=== PATIENT | female | born 1970 | race Caucasian/White ===

== ENCOUNTER 2019-09-03 08:44 | Outpatient (CLI) | payer OTHER, SELFPAY ==
--- NOTE | 2019-09-03 08:58 | MM_ITS ---
WS: [id number] SCREENING DIGITAL MAMMOGRAM WITH CAD HISTORY: SCREENING COMPARISON: None available. Bilateral CC and MLO views submitted. Computer aided detection analyzed. Breast composition: The breasts are heterogeneously dense, which may obscure small masses. Numerous b ilateral asymmetries need further evaluation. Irregular asymmetries in the medial and lateral aspect of the RIGHT breast on the CC projection. There is an 8 mm nodule in the central RIGHT breast on the lateral projection. Asymmetries in the central LEFT breast in the upper outer quadrant. RIGHT breast: Spot compression views (CC and MLO). True ML. Ultrasound to follow if abnormality persi sts. LEFT breast: Spot compression views (CC and MLO). True ML. Ultrasound to follow if abnormality persis ts. MM/[place] [id number] IMPRESSION: BI-RADS: 0-Incomplete: Need additional imaging evaluation FOLLOW UP: Need Additional Imaging
--- NOTE | 2019-09-03 10:22 | US_ITS ---
WS: [id number] Pelvic ultrasound, 09/03/2019 Clinical Data: IRREGULAR MENSES Comparison: None. Findings: The uterus measures 4.70 cm x 5.89 cm x 13.10 cm. The endometrium is 1.02 cm. No intrauterine or abnormal intrauterine mass is seen. The cervical length is 5.34 cm. Nabothian cysts are seen. The left ovary measures 2.45 cm x 2.53 cm x 2.89 cm with no cysts or masses. The right ovary measures 2.03 cm x 2.11 cm x 2.96 cm with no cysts or masses. US/US pelvic complete* [id number] Impression: Negative pelvic ultrasound.
== END 2019-09-03 08:45 | disposition home or self-care (01) ==
LOC: RADSHAW 08:51
PROVIDERS: PCP Electrodiagnostic Medicine; Visit Provider Electrodiagnostic Medicine
DX: Z12.31 Encounter for screening mammogram for malignant neoplasm of breast (principal); N92.6 Irregular menstruation, unspecified
CPT/HCPCS: 76856; 77067

== ENCOUNTER 2019-09-10 09:39 | Outpatient (CLI) | payer OTHER, SELFPAY ==
--- NOTE | 2019-09-10 09:45 | US_ITS ---
WS: [id number] ADDITIONAL VIEWS BILATERAL MAMMOGRAM AND BILATERAL BREAST ULTRASOUND ADDITIONAL VIEWS BILATERAL MAMMOGRAM HISTORY: BILATERAL BREAST MASSES. DENSE ASYMMETRIC TISSUE IN THE UPPER OUTER QUADRANTS OF EACH BREAST . COMPARISON: 09/03/2019 Right breast: Lobulated soft tissue mass measuring 8 mm in the medial RIGHT breast near 2-3 o'clock. There is additional dense asymmetric fibroglandular tissue in the upper-outer quadrant but no discret e mass. Left breast: Dense fibroglandular tissue in the upper-outer quadrant of the LEFT breast. Very dense t issue with obscured discrete masses. Ultrasound will also be obtained. BREAST ULTRASOUND RIGHT breast: 2:00, 2 cm from the nipple is a hypoechoic slightly lobulated mass with fingerlike exte nsions. No through transmission. Mass measures 5 x 6 mm. No increased vascularity. Additional imaging of the RIGHT upper quadrant in the dense fibroglandular tissue is negative for any suspicious mass. Hyperechoic mass at 4 mm at 2:00 is probably a small lipoma. There are some small ducts. No additiona l RIGHT breast mass. LEFT breast: Ultrasound is directed to the upper outer quadrant of the LEFT breast in the dense fibro glandular tissue. There are several small cysts. These have through transmission. No solid mass is id entified. 1. Biopsy recommended of the RIGHT breast mass at 2:00. Complex cyst versus early neoplasm. Ultrasou nd-guided biopsy recommended. 2. No additional suspicious masses are identified within the areas of the dense fibroglandular tissu e. Notified Gino Velasquez DO at 09/10/2019 11:28 AM. Discussed with [facility]. US/US breast BI limited* [id number] IMPRESSION: BI-RADS: 4B-Suspicious: Intermediate FOLLOW UP: Biopsy Recommended
== END 2019-09-10 09:40 | disposition home or self-care (01) ==
LOC: RADSHAW 09:41
PROVIDERS: PCP Electrodiagnostic Medicine; Visit Provider Electrodiagnostic Medicine
DX: N63.21 Unspecified lump in the left breast, upper outer quadrant (principal); N63.11 Unspecified lump in the right breast, upper outer quadrant
CPT/HCPCS: 76642; 77066

== ENCOUNTER 2019-09-29 11:55 | Outpatient (CLI) | payer OTHER, SELFPAY ==
--- NOTE | 2019-09-29 12:00 | US_ITS ---
WS: [id number] ULTRASOUND-GUIDED RIGHT BREAST BIOPSY HISTORY: RT BREAST MASS COMPARISON: 09/10/2019 Procedure, risks and complications are explained to the patient. Medications are reviewed. Consent is obtained. The mass in the RIGHT breast at 2:00 is localized with ultrasound. Skin is cleansed with ChloraPrep a nd anesthetized with 1% buffered lidocaine. Small dermatome is made. Under sterile conditions mass is biopsied with a 14-gauge Achieve needle. Multiple core biopsies are performed. Material placed in [facility] and sent to pathology for review. Only a single biopsy is performed. After the initial biopsy this cystic mass collapsed. Breast tissue marker ([employer] ultrasound enhanced ribbon): None. Patient left the radiology suite with no complications. Patient is instructed to return to [facility] or [facility] with any concerns. 1. Uncomplicated core needle biopsy RIGHT breast cystic mass at 2:00. Mass collapsed after the initi al biopsy. US/[place] [id number] IMPRESSION: PATHOLOGY: Benign breast tissue with fibrocystic changes. Focal apocrine metapl toño. No malignancy. Imaging and pathological findings are concordant. RECOMMENDATION: Diagnostic RIGHT mammogram follow-up in 6 months.
== END 2019-09-29 11:56 | disposition home or self-care (01) ==
LOC: RAD 11:58
PROVIDERS: PCP Electrodiagnostic Medicine; Visit Provider Electrodiagnostic Medicine
DX: N63.10 Unspecified lump in the right breast, unspecified quadrant (principal)
CPT/HCPCS: 19083; 88305; J2001

== ENCOUNTER 2020-04-05 12:50 | Outpatient (CLI) | payer OTHER, SELFPAY ==
--- NOTE | 2020-04-05 13:13 | MM_ITS ---
WS: [id number] RIGHT DIGITAL DIAGNOSTIC MAMMOGRAM MAMMOGRAPHY WITH CAD CLINICAL INFORMATION: RT BREAST MASS 6 MO F/U COMPARISON September 10, 2019 and ultrasound September 10, 2019 and September 29, 2019 TECHNIQUE: Right CC, MLO, and ML views. FINDINGS: Scattered fibroglandular densities right breast. Stable 8 mm asymmetric density inferior right breast . A few punctate calcifications. No other changes. No suspicious focal mass, asymmetry, calcifications, or architectural distortion. No evidence of kira gnancy. MM/[place] [id number] IMPRESSION: BI-RADS: 2-Benign FOLLOW UP: 1 Year Follow-up Recommend return to annual screening mammography.
== END 2020-04-05 12:51 | disposition home or self-care (01) ==
LOC: RADSHAW 12:52
PROVIDERS: PCP Electrodiagnostic Medicine; Visit Provider Electrodiagnostic Medicine
DX: N63.10 Unspecified lump in the right breast, unspecified quadrant (principal)
CPT/HCPCS: 77065

== ENCOUNTER 2021-11-15 13:46 | Outpatient (CLI) | payer OTHER, SELFPAY ==
--- NOTE | 2021-11-15 13:56 | MM_ITS ---
WS: [id number] BILATERAL SCREENING 3D TOMOSYNTHESIS DIGITAL MAMMOGRAM WITH CAD HISTORY: SCREENING COMPARISON: 04/05/2020, 09/03/2019 Bilateral CC and MLO views submitted. Computer aided detection analyzed. Breast composition: The breasts are heterogeneously dense, which may obscure small masses. No suspici ous masses, microcalcifications or architectural distortion. Lobulated mass in the medial superior RI GHT breast has undergone biopsy before and benign. There are additional asymmetries throughout both b reasts which are stable. MM/[place] [id number] IMPRESSION: BI-RADS: 2-Benign FOLLOW UP: 1 Year Follow-up
== END 2021-11-15 13:47 | disposition home or self-care (01) ==
LOC: RADSHAW 13:48
PROVIDERS: PCP Electrodiagnostic Medicine; Visit Provider Electrodiagnostic Medicine
DX: Z12.31 Encounter for screening mammogram for malignant neoplasm of breast (principal)
CPT/HCPCS: 77063; 77067

== ENCOUNTER 2023-03-12 08:38 | Outpatient (CLI) | payer OTHER, SELFPAY ==
--- NOTE | 2023-03-12 09:04 | MM_ITS ---
WS: [id number] VIEWS: MLO and CC views both breasts. 3D digital tomosynthesis is also included in this exam. Comparison made with prior exam of 09/03/2019, 04/05/2020, 11/15/2021.. Findings: There was no sign of mass, architectural distortion or suspicious calcification in either breast. Sta ble appearing nodular densities in both breasts.The breasts are heterogeneously dense which may obscu re small masses. MM/[place] [id number] Impression: BI-RADS: 2-Benign finding. FOLLOW-UP: 1 Year Follow-up This mammogram was also analyzed by the Computer Aided Detection System [employer]ag [employer].
== END 2023-03-12 08:39 | disposition home or self-care (01) ==
PROVIDERS: PCP Family Medicine; Visit Provider Family Medicine
DX: Z12.31 Encounter for screening mammogram for malignant neoplasm of breast (principal)
CPT/HCPCS: 77063; 77067

== ENCOUNTER → 2023-04-02 08:13 | Outpatient (BNVA) | payer OTHER, SELFPAY | PROVIDERS: PCP Family Medicine; Visit Provider Family Medicine | DX: Z51.81 Encounter for therapeutic drug level monitoring (principal); Z13.220 Encounter for screening for lipoid disorders | CPT/HCPCS: 80053; 80061; 85025 ==

== ENCOUNTER 2024-03-11 07:05 | Day surgery (SDC) | payer OTHER, SELFPAY ==
[2024-03-11 07:28] VITALS: BP 130/90; PULSE 111; RESP 18; TEMP 36.7; O2SAT 96
[2024-03-11 07:32] VITALS: BMI 33.5
--- NOTE | 2024-03-11 07:33 | ANES.PREANE2 ---
Pre-Anesthetic Assessment Height/Weight: Height 1.63 m Weight 88.451 kg Temp Pulse Resp BP Pulse Ox O2 Del Method 98.1 F 111 H 18 130/90 96 Room Air 03/11/24 07:28 03/11/24 07:28 03/11/24 07:28 03/11/24 07:28 03/11/24 07:28 03/11/24 07:28 Preop Diagnosis: screening Operation Date: 03/11/24 09:00 Proposed Procedures p Colonoscopy 05440,G0121, Z12.11(Not Applicable) - German Esquivel MD Familial anesthetic complications: none Was Beta Ninfa taken within 24 hours: N/A Was Clonidine taken within 24 hours: N/A Last intake: Intake Last Liquid Date 03/10/24 Last Liquid Time 23:00 Last Solid Date 03/09/24 Social No alcohol and No tobacco Exam alert, oriented x 3, clear to auscultation bilaterally and regular rate & rhythm Airway Submandibular: within normal limits Cervical ROM: within normal limits Mallampati: Class II Dentition: full Pulmonary None reported CV/HEM Hypertension None reported Hepatic None reported GI None reported Metabolic Hyperlipidemia [facility] None reported Neuropsych None reported Anesthetic Plan ASA status: 2 Anesthesia: MAC Risk of > 500 ml blood loss (7ml/kg in children): No Medications/Allergies Home Medications Medication Instructions Recorded Confirmed Last Taken Type atorvastatin 40 mg tablet 40 mg PO DAILY #90 tabs 04/02/23 03/10/24 03/09/24 Rx lisinopril 10 mg tablet 10 mg PO DAILY #90 tabs 04/02/23 03/10/24 03/09/24 Rx multivitamin 1 tab PO DAILY 03/10/24 03/10/24 03/09/24 History Allergies Allergy/AdvReac Type Severity Reaction Status Date / Time No Known Allergies Allergy Verified 02/18/24 08:01 [facility] Anesthesia Surgical History Hx of section Family History Father Hypertension Hyperlipidemia Mother Hypertension Social History Smoking and tobacco/nicotine status: never used tobacco/nicotine Alcohol intake: never Substance/Drug Use: never 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
[2024-03-11] MEDS: sodium chloride 0.9% 1,000 ML 30 ML IV ×2 (07:37→08:53)
--- NOTE | 2024-03-11 07:38 | W.PM.OPSUD ---
Surgery/Procedure H&P Update DATE OF PROCEDURE: March 11, 2024 DATE H&P PERFORMED: 02/18/24 H&P UPDATE INFORMATION: I have reviewed H&P completed within last 30 days, I have examined patient prior to procedure, No changes to prior documentation and H&P is in [facility] EMR on date indicated PREOP DIAGNOSIS: screening PLANNED PROCEDURE: Operation Date: 03/11/24 09:00 Proposed Procedures p Colonoscopy [id number],G0121, Z12.11(Not Applicable) - German Esquivel MD
[2024-03-11 09:22] VITALS: BP 107/78; PULSE 87; RESP 16; TEMP 36.6; O2SAT 97
[2024-03-11 09:27] VITALS: BP 107/70; PULSE 91; RESP 18; O2SAT 95
[2024-03-11 09:37] VITALS: BP 122/72; PULSE 72; RESP 18; O2SAT 96
--- NOTE | 2024-03-11 09:50 | ANE.PACU2 ---
Inpatient post-anesthesia follow up: Airway intact: Yes Vital signs: Temperature 97.8 F Pulse Rate 72 Respiratory Rate 18 Blood Pressure 122/72 Pulse Oximetry 96 Oxygen Delivery Me thod Room Air Oxygen Flow Rate Fraction of Inspir ed Oxygen Hydration adequate: Yes Nausea and vomiting: No Pain level: 1 Mental status: Baseline
[2024-03-12 09:43] LABS: OR HCG Qualitative Urine Negative (Negative)
== END 2024-03-11 09:50 | disposition home or self-care (01) ==
PROVIDERS: Anesthesiology; PCP Family Medicine; Visit Provider Surgery
PROC: 0DJD8ZZ Inspection of Lower Intestinal Tract, Via Natural or Artificial Opening Endoscopic (ICD-10-PCS; CPT 45378; principal; 2024-03-11 09:00)
DX: Z12.11 Encounter for screening for malignant neoplasm of colon (principal); I10 Essential (primary) hypertension; E78.5 Hyperlipidemia, unspecified
CPT/HCPCS: 45378; 81025; J2704; J7030